=== PATIENT | male | born 1940 | race Caucasian/White ===

== ENCOUNTER 2024-08-03 08:27 | Emergency (ER) | payer OTHER, SELFPAY ==
[2024-08-03] VITALS (8 sets, daily range): BP systolic 116–137; BP diastolic 48–61; PULSE 66–70; BMI 24.3
--- NOTE | 2024-08-03 08:42 | ED.GENMED ---
History of Present Illness
General
Chief Complaint: Fainting Sensation
Time Seen by Provider: 08/03/24 08:29
History of Present Illness
History of Present Illness:
84-year-old male with history of hypertension, hyperlipidemia, chronic cough, and chronic cardiac murmur presents to the emergency department for evaluation of generalized weakness/near syncope. He states that he woke up this morning and went to
make a pot of coffee when he began to feel weak and fell to the ground. He was able to lower himself gently and strikes that he did not hit his head. He had 2 other episodes when attempting to stand up but did not have a full loss of
consciousness. Was able to call security at his facility for assistance. He does note that the day prior he was essentially awake all night and emergency department with his spouse. He currently feels fatigued but denies other complaints. Denies
any chest pain or palpitations preceding these events. Does note that he has had URI symptoms over the past week that seem to be improving
Past History
Past History
ED Past Medical History: HTN, Hypercholesterolemia and Other (Rheumatoid arthritis)
ED Past Surgical History: Urological and Other (Hernia repair, skin cancer)
Social History
Tobacco: Non-smoker
Personal:
Living: with family
Employment: Retired
Family History
Family History: Negative Early CAD
Review of Systems
Review of Systems
Allergies reviewed?: Yes
All Other Systems: ROS reviewed and negative except as documented in HPI and ROS
Phy Exam
Physical Exam
Physical Exam:
GEN: Well appearing, NAD, WDWN
HEENT: Oral mucosa moist, no scleral icterus
Cardiac: Regular rate and rhythm, 2/6 systolic murmur reportedly baseline for the patient
Lung: No respiratory distress, no tachypnea, mild expiratory wheezes predominantly heard in the upper [place] bilaterally
MSK: No gross deformity or injuries
Skin: Good color, no pallor or jaundice, no rashes
Neuro: AO x3, moves all extremities freely
Psych: Calm, cooperative
Course
Orders/Labs/Results
Orders:
Orders
08/03/24 08:35
Electrocardiogram (*1) Urgent
Reason for Study: Vertigo / Dizzy
EKG- Treatment ONCE
08/03/24 08:40
0.9% Sodium Chloride 500 ml [Nss] 500 ml IV BOLUS
08/03/24 08:41
CR Chest - 2 Views Urgent
Comment:
Reason For Exam: near syncope, cough
08/03/24 08:51
Complete Blood Count/With Diff Urgent
Comprehensive Metabolic Panel Urgent
Manual Differential Urgent
08/03/24 09:27
Orthostatic VS- Treatment ONCE
Abnormal Lab Results
08/03/24
08:51
RBC 3.78 L 10^6/uL
(4.70-6.10)
Hgb 11.8 L g/dL
(13.0-18.0)
Hct 35.3 L %
(39.0-52.0)
MCH 31.2 H pg
(27.0-31.0)
MPV 12.1 H fL
(7.4-10.4)
Lymphocytes (Manual) 14 L %
(20-51)
Monocytes (Manual) 23 H %
(2-9)
Glucose 106 H mg/dl
(70-99)
08/03/24 08:51
08/03/24 08:51
Vital Signs
Initial and Last Documented VS:
Initial Vital Signs
Temp Pulse Resp BP Pulse Ox
98.3 F 73 18 129/53 97
08/03/24 08:32 08/03/24 08:32 08/03/24 08:32 08/03/24 08:32 08/03/24 08:32
Last Documented Vital Signs
Temp Pulse Resp BP Pulse Ox
98.3 F 63 24 116/52 96
08/03/24 08:32 08/03/24 10:15 08/03/24 10:15 08/03/24 10:00 08/03/24 10:15
MDM/Problems Addressed
MDM/Problems Addressed:
84-year-old male presents after a near syncopal event, likely vasovagal and mediated by sleep deprivation recently. Labs are reassuring, chest x-ray obtained as the patient has had coughing for the past week, this shows no evidence for pneumonia.
He was given IV fluids, not orthostatic in the emergency department. Able to ambulate steadily throughout the ED and discharged in stable condition
Comment
Comment:
EKG independently interpreted by me shows normal sinus rhythm at a rate of [address] changes concerning for ischemia
*Critical Care Note
Total Time (30-74mins, 75-104mins- exclusive of procedures): Not Applicable
ED Attending Note
-
Portions of this chart may have been created with voice recognition software.� Occasional wrong word or��sound alike� substitutions may have occurred due to the inherent limitations of voice recognition software.
Discharge Plan
Departure
Patient Disposition: Home (Routine Discharge)
Date of Disposition: 08/03/24
Time of Disposition: 10:41
Patient with high blood pressure during this ER visit?: No
Discharge Problem:
Near syncope
Instructions: Near Fainting (DC)
Prescriptions:
No Action
atorvastatin 10 MG tablet
10 mg PO DAILY
methotrexate sodium 2.5 MG tablet
7.5 mg PO SA
lisinopril 10 MG tablet
10 mg PO DAILY
hydroxychloroquine 200 MG tablet
200 mg PO DAILY
timolol maleate 1 DROP drops
1 drp BOTH EYES DAILY
cholecalciferol (vitamin D3) 1,000 UNITS tablet
1,000 units PO DAILY
folic acid 1 MG tablet
1 mg PO SUMOTUWETHFR
Referrals:
Sera,Lupe R., MD [Family Provider] -
Interventions
Interventions:
*Risk Screen - Suicide Last Done: 08/03/24 08:32
*General Assessment Last Done: 08/03/24 08:32
*Neglect/Abuse Screening Last Done: 08/03/24 08:32
*ED- Fall Risk Assessment Last Done: 08/03/24 08:32
*ED COVID-19 Vaccine History Last Done: 08/03/24 08:32
*Nursing Disposition Last Done: 08/03/24 11:07
ED- Cardiac Assessment Last Done: 08/03/24 08:32
ED- Neurological Assessment Last Done: 08/03/24 08:32
Discharge Date and Time
Discharge Date/Time: 08/03/24 11:08
Print Language: TURKISH
[2024-08-03] MEDS: NSS 500 IV (08:50)
[2024-08-03 09:09] LABS: Hematocrit 35.3 % (39.0-52.0); Hemoglobin 11.8 g/dL (13.0-18.0); Mean Corp Hgb Conc. 33.4 g/dL (33.0-37.0); Mean Corpuscular Hgb 31.2 pg (27.0-31.0); Mean Corpuscular Volume 93.4 fL (80.0-94.0); Mean Platelet Volume 12.1 fL (7.4-10.4); Platelet Count 150 10^3/uL (130-400); Red Blood Cell Count 3.78 10^6/uL (4.70-6.10); Red Cell Dist. Width 13.7 % (11.5-14.5); White Blood Cell Count 10.2 10^3/uL (4.8-10.8)
[2024-08-03 09:19] LABS: ALT (SGPT) 14 U/L (0-50); AST (SGOT) 23 U/L (17-59); Albumin 3.8 g/dl (3.5-5.0); Alkaline Phosphatase 60 U/L (38-126); Blood Urea Nitrogen 18 mg/dl (9-20); Calcium 8.6 mg/dl (8.4-10.2); Carbon Dioxide 29 mmol/L (22-30); Chloride 106 mmol/L (98-107); Estimated Creatinine Clearance 50 ml/min; Glucose 106 mg/dl (70-99); Sodium 138 mmol/L (135-145); Total Protein 6.8 g/dl (6.3-8.2); eGFR > 60.00
[2024-08-03 09:59] LABS: Absolute Neutrophils -Man Diff 6.3 10^3/uL (1.4-6.5); Band Neutrophils 3 % (0-3); Eosinophils 1 % (0-6); Lymphocytes 14 % (20-51); Monocytes 23 % (2-9); Segmented Neutrophils 59 % (42-75)
[2024-08-03 10:00] LABS: Normal RBC Morphology Yes; Platelets Checked Yes; Total Cells Counted 100
== END 2024-08-03 11:08 | disposition home or self-care (01) ==
LOC: EMR 08:27
PROVIDERS: Physician Assistant; EMERGENCY PHYSICIAN Emergency Medicine; FAMILY PHYSICIAN Family Medicine
DX: R55 Syncope and collapse (principal); I10 Essential (primary) hypertension; E78.00 Pure hypercholesterolemia, unspecified
CPT/HCPCS: 99285; 71046; 80053; 85025; 93005

== ENCOUNTER 2024-08-19 13:52 | Emergency (ER) | payer OTHER, SELFPAY ==
[2024-08-19 13:56] VITALS: BP 120/67
[2024-08-19 15:04] VITALS: BP 155/53
[2024-08-19 15:09] VITALS: BMI 21.7
--- NOTE | 2024-08-19 15:24 | ED.GENMED ---
History of Present Illness
<Davis Barrera MD, Resident - Last Filed: 08/19/24 16:49>
General
Chief Complaint: Musculo-Skeletal Complaint
Time Seen by Provider: 08/19/24 14:59
History of Present Illness
History of Present Illness:
This is an 84-year-old male with history of rheumatoid arthritis on daily 5mg prednisone who presents to the ED complaining of right anterior knee pain ongoing for about 2 weeks. Patient had a fall episode 2 weeks ago, and was evaluated in the ED.
At that time a chest x-ray was ordered, but a knee xray wasn't done due to minimal complaint of right knee pain from patient. Patient reports pain continued to worsen as the days progressed. He can bear weight on the knee, but reports moderate
pain with ambulating. He has had no new trauma, falls since the episode 2 weeks ago. He denies weakness, numbness, tingling sensation.
<Arsalan Piper, DO - Last Filed: 08/19/24 16:46>
General
Source: patient
Past History
<Davis Barrera MD, Resident - Last Filed: 08/19/24 16:49>
Past History
ED Past Medical History: HTN, Hypercholesterolemia and Other (Rheumatoid arthritis)
ED Past Surgical History: Urological and Other (Hernia repair, skin cancer)
Social History
Tobacco: Non-smoker
Personal:
Living: with family
Employment: Retired
Family History
Family History: Negative Early CAD
Phy Exam
<Davis Barrera MD, Resident - Last Filed: 08/19/24 16:49>
General Physical Exam
General Presentation: well appearing and no apparent distress
General Mental: alert
Cardiovascular Exam
Cardiovascular Exam: regular rate/rhythm
Systolic Murmur: 2/6
Pulmonary Exam
Pulmonary Exam: lungs clear and no respiratory distress
Musculoskeletal Exam
Musculoskeletal Exam: other (Right knee with mild swelling, no erythema, no deformity. Full active, passive range of motion to at least more than 60 degrees. Mild tenderness palpation of anterior knee)
Psychiatric Exam
Psychiatric Exam: normal mood/affect
Course
<Davis Barrera MD, Resident - Last Filed: 08/19/24 16:49>
Orders/Labs/Results
Orders:
Orders
08/19/24 15:23
CR Knee - Right 1 Or 2 Views Urgent
Comment:
Reason For Exam: right knee pain
08/19/24 16:39
Knee Immobilizer Right-Treatme ONCE
Vital Signs
Initial and Last Documented VS:
Initial Vital Signs
Temp Pulse Resp BP Pulse Ox
97.8 F 72 16 120/67 97
08/19/24 13:56 08/19/24 13:56 08/19/24 13:56 08/19/24 13:56 08/19/24 13:56
Last Documented Vital Signs
Temp Pulse Resp BP Pulse Ox
97.7 F 63 11 132/57 97
08/19/24 15:08 08/19/24 16:00 08/19/24 16:00 08/19/24 16:00 08/19/24 16:00
<Arsalan Piper, DO - Last Filed: 08/19/24 16:46>
Orders/Labs/Results
Orders:
Orders
08/19/24 15:23
CR Knee - Right 1 Or 2 Views Urgent
Comment:
Reason For Exam: right knee pain
08/19/24 16:39
Knee Immobilizer Right-Treatme ONCE
Vital Signs
Initial and Last Documented VS:
Initial Vital Signs
Temp Pulse Resp BP Pulse Ox
97.8 F 72 16 120/67 97
08/19/24 13:56 08/19/24 13:56 08/19/24 13:56 08/19/24 13:56 08/19/24 13:56
Last Documented Vital Signs
Temp Pulse Resp BP Pulse Ox
97.7 F 63 11 132/57 97
08/19/24 15:08 08/19/24 16:00 08/19/24 16:00 08/19/24 16:00 08/19/24 16:00
<Davis Barrera MD, Resident - Last Filed: 08/19/24 16:49>
MDM/Problems Addressed
MDM/Problems Addressed:
84-year-old male presents to the ER complaining of right anterior knee pain ongoing for the past 2 weeks. Physical examination with full active and passive range of motion, no erythema, no deformity, lack of warmth in the anterior knee. Will
administer ibuprofen. Evaluate with right knee x-ray.
Plan is for knee immobilizer and to Increase prednisone dosage to 10 mg for the next 4 days, return to 5 mg on day 5. Advised patient if increased swelling, fevers, redness occur over the next few days, he should return back to the ED for
evaluation. Follow-up with your PCP at the next available appointment
<Davis Barrera MD, Resident - Last Filed: 08/19/24 16:49>
*Critical Care Note
Total Time (30-74mins, 75-104mins- exclusive of procedures): Not Applicable
ED Attending Note
<Davis Barrera MD, Resident - Last Filed: 08/19/24 16:49>
-
Portions of this chart may have been created with voice recognition software.� Occasional wrong word or��sound alike� substitutions may have occurred due to the inherent limitations of voice recognition software.
<Arsalan Piper DO - Last Filed: 08/19/24 16:46>
ED Attending Note
Patient seen and examined by attending physician: Yes
I performed a history and physical exam of patient and discussed management with resident, I reviewed resident's note and agree with documented findings and plan of care.: Yes
ED Attending Note:
84-year-old male with history of rheumatoid arthritis who presents with progressive right knee pain. Did have a fall event back on August 03. Patient states he sort of collapsed down and injured his right knee but symptoms are only mild at the time.
Over the last few weeks symptoms got worse. Does admit again to history of rheumatoid thrice. No fevers. No redness. Patient states it progressively got worse. Exam: Small right knee if. Pulse. No redness or warmth. Minor tenderness to the
lateral aspect of the knee at the LCL. Assessment plan: Knee immobilizer and will expand steroids to a minor degree for a few days. Outpatient follow-up recommended. Not a significant enough effusion to warrant arthrocentesis at this time. No
clinical concern for septic
Discharge Plan
Departure
Instructions: Knee Immobilizer (DC)
Prescriptions:
No Action
atorvastatin 10 MG tablet
10 mg PO DAILY
methotrexate sodium 2.5 MG tablet
7.5 mg PO SA
lisinopril 10 MG tablet
10 mg PO DAILY
hydroxychloroquine 200 MG tablet
200 mg PO DAILY
timolol maleate 1 DROP drops
1 drp BOTH EYES DAILY
cholecalciferol (vitamin D3) 1,000 UNITS tablet
1,000 units PO DAILY
folic acid 1 MG tablet
1 mg PO SUMOTUWETHFR
Referrals:
Lupe Zamora MD [Family Provider] - Next open appointment
Activity Restrictions/Additional Instructions:
Please return for any worsening symptoms.
You may return at any time if you experience fever, chills, increased swelling,redness.
Increase your prednisone dosage to 10mg for the next 4 days, and return to your usual 5mg on the 5th day.
Please follow up with your doctor at the first available appointment, preferably this week.
Thank you for choosing [facility].
Interventions
Interventions:
*Risk Screen - Suicide Last Done: 08/19/24 13:56
*General Assessment Last Done: 08/19/24 15:12
*Neglect/Abuse Screening Last Done: 08/19/24 13:56
*ED- Fall Risk Assessment Last Done: 08/19/24 15:12
ED-Musculoskeletal Assessment Last Done: 08/19/24 15:10
Discharge Date and Time
Print Language: COMORAN
[2024-08-19 16:00] VITALS: BP 132/57
[2024-08-19 17:52] VITALS: BP 132/57
== END 2024-08-19 18:08 | disposition home or self-care (01) ==
LOC: EMR 13:52
PROVIDERS: EMERGENCY PHYSICIAN Emergency Medicine; FAMILY PHYSICIAN Family Medicine
DX: M25.561 Pain in right knee (principal); M06.9 Rheumatoid arthritis, unspecified; I10 Essential (primary) hypertension; E78.00 Pure hypercholesterolemia, unspecified
CPT/HCPCS: 29505; 99283; 73560

== ENCOUNTER → 2025-02-20 08:25 | Outpatient (REF) | payer OTHER, SELFPAY | LOC: RAD 08:25 | PROVIDERS: ATTENDING PHYSICIAN Internal Medicine; FAMILY PHYSICIAN Family Medicine | DX: M81.0 Age-related osteoporosis without current pathological fracture (principal) | CPT/HCPCS: 77080 ==